=== PATIENT | female | born 1955 | race Two or more races ===

== ENCOUNTER → 2020-12-05 | Outpatient (CLI) | payer MEDICARE, OTHER | END | disposition home or self-care (01) | LOC: RAD 15:09 | PROVIDERS: ATTEND Internal Medicine Nephrology | DX: R60.9 Edema, unspecified (principal); E11.22 Type 2 diabetes mellitus with diabetic chronic kidney disease; I12.9 Hypertensive chronic kidney disease with stage 1 through stage 4 chronic kidney disease, or unspecified chronic kidney disease; R80.8 Other proteinuria; E61.1 Iron deficiency; D47.2 Monoclonal gammopathy; E55.9 Vitamin D deficiency, unspecified; D64.9 Anemia, unspecified; N18.31 Chronic kidney disease, stage 3a | CPT/HCPCS: 93970 ==

== ENCOUNTER 2020-12-13 06:25 | Day surgery (SDC) | payer MEDICARE, OTHER ==
[~2020-12-13] VITALS: Ht 154.9 cm; Wt 57.6 kg
[2020-12-13 07:22] VITALS: BP 153/72
[2020-12-13] MEDS ORDERED: SODIUM CHLORIDE 0.9% 1,000 ML IV SCH (07:30)
[2020-12-13] MEDS ORDERED: GABA-826 PO (07:36)
[2020-12-13] MEDS ORDERED: FURO20TA3 PO (07:36)
[2020-12-13] MEDS ORDERED: ALLO100T30 PO (07:36)
[2020-12-13] MEDS ORDERED: LOVA20TA2 PO (07:36)
[2020-12-13] MEDS ORDERED: METF500T17 PO (07:36)
[2020-12-13] MEDS ORDERED: LISI40TA9 PO (07:36)
[2020-12-13] MEDS ORDERED: MULT-709 PO (07:36)
[2020-12-13] MEDS ORDERED: LEVO88TA2 PO (07:36)
[2020-12-13] MEDS ORDERED: AMLO-150 PO (07:36)
[2020-12-13 07:41] LABS: INTERNATIONAL NORMALIZED RATIO 0.91 (0.93-1.1); PROTHROMBIN TIME 9.8 Seconds (9.6-11.5)
[2020-12-13] MEDS ORDERED: FLUMAZENIL 0.1 MG/1 ML, 5ML ONE (07:56)
[2020-12-13] MEDS ORDERED: NALOXONE 1 MG/ML, 2ML ONE (07:56)
[2020-12-13] MEDS ORDERED: MIDAZOLAM 1 MG/ML, 5ML ONE (07:56)
[2020-12-13] MEDS ORDERED: FENTANYL PF 100 MCG/2ML ONE ×2 (07:56)
== END 2020-12-13 10:45 | disposition home or self-care (01) ==
LOC: OUT 06:25
PROVIDERS: ATTEND Internal Medicine Nephrology
DX: E11.22 Type 2 diabetes mellitus with diabetic chronic kidney disease (principal); I12.9 Hypertensive chronic kidney disease with stage 1 through stage 4 chronic kidney disease, or unspecified chronic kidney disease; N18.31 Chronic kidney disease, stage 3a; E78.5 Hyperlipidemia, unspecified; E03.9 Hypothyroidism, unspecified; Z79.01 Long term (current) use of anticoagulants; Z79.84 Long term (current) use of oral hypoglycemic drugs; Z79.890 Hormone replacement therapy; Z79.899 Other long term (current) drug therapy; Z88.8 Allergy status to other drugs, medicaments and biological substances
CPT/HCPCS: 36415; 50200; 77012; 82962; 85610; 88300; 99156; 99157; J2250; J3010; J7030; J2310